=== PATIENT | female | born 1990 | race Caucasian/White ===

== ENCOUNTER 2023-12-13 14:09 | Inpatient (IN) | payer MEDICAID ==
[~2023-12-13] VITALS: Ht 154.9 cm; Wt 64.6 kg
[2023-12-13 14:17] VITALS: O2SAT 98
[2023-12-13] MEDS: SODIUM CHLORIDE 0.9% 1,000 ML IV ONE ×2 (14:45→16:07)
[2023-12-13] MEDS: PIPERACILLIN/TAZO 3.375G/50ML 50 ML IV STA (16:07)
[2023-12-13 16:49] LABS: BASOPHILS % 0.4 % (0.0-2.0); EOSINOPHILS % 0.6 % (0.0-5.0); HEMATOCRIT. 22.9 % (36.0-48.0); HEMOGLOBIN. 7.7 g/dL (12.0-16.0); LYMPHOCYTES % 8.6 % (20.0-50.0); MEAN CORPUSCULAR HEMOGLOBIN 28.4 pg (28.0-32.0); MEAN CORPUSCULAR HGB CONC 33.8 g/dL (31.0-37.0); MEAN CORPUSCULAR VOLUME 83.9 fL (81.0-99.0); MEAN PLATELET VOLUME 7.3 fl (7.4-10.4); MONOCYTES % 3.3 % (2.0-8.0); NEUTROPHILS % 87.1 % (40.0-76.0); PLATELET 207 x1000/uL (130-400); RED BLOOD CELL COUNT 2.73 mill/uL (4.2-5.4); RED CELL DISTRIBUTION WIDTH 16.2 % (11.6-14.6); WHITE BLOOD COUNT 17.1 x1000/uL (4.5-11.0)
[2023-12-13 16:57] LABS: CHLORIDE 99 mEq/L (98-107); POTASSIUM 4.4 mEq/L (3.5-5.1); SODIUM 128 mEq/L (136-145)
[2023-12-13 16:58] LABS: CALCIUM 8.4 mg/dL (8.7-10.4); CARBON DIOXIDE 20 mEq/L (21-32)
[2023-12-13] MEDS: HYDRALAZINE 20MG/ML VIAL IV ONE (16:59)
[2023-12-13] MEDS: MORPHINE SULFATE 4 MG/ML INJ (FOR IV/IM USE) IV ONE (16:59)
[2023-12-13 17:03] LABS: CREATININE 3.7 mg/dL (0.6-1.0); GLUCOSE 125 mg/dL (70-105); UREA NITROGEN BLOOD 29 mg/dL (9-23)
[2023-12-13 17:09] LABS: D-DIMER 4.32 mg/L FEU (<0.50); INR 1.1
[2023-12-13 17:16] LABS: HCG SCREEN NEGATIVE
[2023-12-13 17:18] LABS: TROPONIN I HIGH SENSITIVITY 171 ng/L (3.0-34)
[2023-12-13 19:46] LABS: BG BASE EXCESS -6.1 mmol/L (-2.0-2.0); BG CARBOXYHEMOGLOBIN 0.3 % (0.5-1.5); BG DEOXYHEMOGLOBIN 5.5 % (0.0-5.0); BG FRACTION INSPIRED OXYGEN 44; BG METHEMOGLOBIN 0.4 % (0.0-1.5); BG OXYGEN SATURATION 94.5 % (92.0-98.5); BG OXYHEMOGLOBIN 93.8 % (94.0-97.0); BG PCO2 29.4 mmHg (35.0-45.0); BG PH 7.405 (7.350-7.450); BG PO2 78.4 mmHg (75.0-100.0); BG SAMPLE SITE RIGHT RADIAL; BG VENT MODE NASAL CANNULA
[2023-12-13] MEDS ORDERED: DOCUSATE SODIUM 100MG CAPSULE PO PRN (20:30)
[2023-12-13] MEDS ORDERED: IPRATROPIUM/ALBUTEROL 0.5-3(2.5)MG/3ML NEB HHN PRN (20:30)
[2023-12-13] MEDS ORDERED: ONDANSETRON HCL 4MG/2ML INJ IV PRN (20:30)
[2023-12-13] MEDS ORDERED: IOHEXOL-350 100 ML BOTTLE ONE (20:42)
[2023-12-13] MEDS: VANCOMYCIN 1250MG in DEXTROSE 5% WATER 250ML IV NR (21:00)
[2023-12-13] MEDS: CLONIDINE 0.1MG TABLET PO NR (21:15)
[2023-12-13 22:30] VITALS: BP 146/111; PULSE 110; RESP 17; TEMP 98.3
[2023-12-13] MEDS: CLONIDINE 0.1MG TABLET PO PRN (22:58)
[2023-12-14] VITALS (18 sets, daily range): BP systolic 121–146; BP diastolic 94–111; PULSE 90–110; RESP 17–25; TEMP 97.5–98.5
[2023-12-14 00:20] LABS: IRON 23 ug/dL (50-170)
[2023-12-14 00:23] LABS: TOTAL IRON BINDING CAPACITY 372 ug/dl (250-425)
[2023-12-14 01:03] LABS: FOLIC ACID (FOLATE) SERUM > 20.00 ng/mL (>5.38); VITAMIN B12 SERUM 1075 pg/mL (211-911)
[2023-12-14] MEDS ORDERED: PIPERACILLIN/TAZO 3.375G/50ML 50 ML IV SCH (04:00)
[2023-12-14 04:04] LABS: POTASSIUM 4.9 mEq/L (3.5-5.1)
[2023-12-14 04:10] LABS: CREATININE 3.6 mg/dL (0.6-1.0)
[2023-12-14 04:11] LABS: CREATINE KINASE MB FRACTION 3.3 ng/mL (0.5-3.6)
[2023-12-14 04:15] LABS: T4 FREE 1.35 ng/dL (0.89-1.76); THYROID STIMULATING HORMONE 5.29 uIU/mL (0.55-4.78)
[2023-12-14] MEDS: PIPERACILLIN/TAZO 3.375G/50ML 50 ML IV SCH (04:29)
[2023-12-14] MEDS: SODIUM CHLORIDE 0.9% 1,000 ML IV SCH (04:30)
[2023-12-14] MEDS: ENOXAPARIN 60MG/0.6ML SYR SUBCUT SCH (07:59)
[2023-12-14 08:08] LABS: BASOPHILS % 0.4 % (0.0-2.0); EOSINOPHILS % 0.2 % (0.0-5.0); LYMPHOCYTES % 14.6 % (20.0-50.0); MEAN CORPUSCULAR HEMOGLOBIN 27.9 pg (28.0-32.0); MEAN CORPUSCULAR HGB CONC 33.5 g/dL (31.0-37.0); MEAN CORPUSCULAR VOLUME 83.3 fL (81.0-99.0); MEAN PLATELET VOLUME 7.6 fl (7.4-10.4); MONOCYTES % 3.8 % (2.0-8.0); PLATELET 194 x1000/uL (130-400); RED CELL DISTRIBUTION WIDTH 16.4 % (11.6-14.6); WHITE BLOOD COUNT 10.6 x1000/uL (4.5-11.0)
[2023-12-14 08:21] LABS: HEMATOCRIT. 20.9 % (36.0-48.0)
[2023-12-14] MEDS ORDERED: NITROGLYCERIN 0.4MG TABLET SL SL PRN (09:30)
[2023-12-14] MEDS: AMLODIPINE 5MG TABLET PO SCH (09:43)
[2023-12-14 09:45] LABS: CLARITY URINE CLOUDY (CLEAR); GLUCOSE URINE NEGATIVE (NEGATIVE); KETONES URINE NEGATIVE (NEGATIVE); LEUKOCYTE ESTERASE URINE NEGATIVE (NEGATIVE); NITRITE URINE NEGATIVE (NEGATIVE); OCCULT BLOOD URINE 2+ (NEGATIVE); PH URINE 5.5 (4.5-8.0); PROTEIN URINE 4+ (NEGATIVE); SPECIFIC GRAVITY URINE 1.038 (1.005-1.030); UROBILINOGEN URINE 0.2 E.U./dL (0.2-1.0)
[2023-12-14 10:01] LABS: COLOR URINE GREEN (YELLOW)
[2023-12-14 10:03] LABS: BACTERIA URINE 2+; SQUAMOUS EPITHELIAL CELL URINE FEW /lpf (RARE/1+); WBC URINE 0-2 /hpf (0-2); YEAST URINE NONE SEEN
[2023-12-14 11:37] LABS: *AMPHETAMINES SCREEN URINE NEGATIVE (NEGATIVE)
[2023-12-14 11:38] LABS: *BARBITURATES SCREEN URINE NEGATIVE (NEGATIVE); *BENZODIAZEPINES SCREEN URINE NEGATIVE (NEGATIVE); *COCAINE SCREEN URINE NEGATIVE (NEGATIVE); CANNABINOID URINE SCREEN NEGATIVE (NEGATIVE); ECSTASY MDMA SCREEN URINE NEGATIVE (NEGATIVE); METHADONE URINE SCREEN NEGATIVE (NEGATIVE); OPIATES URINE SCREEN PRESUMPTIVE POSITIVE (NEGATIVE); PHENCYCLIDINE URINE SCREEN NEGATIVE (NEGATIVE)
[2023-12-14 18:56] LABS: TROPONIN I HIGH SENSITIVITY 235 ng/L (3.0-34)
[2023-12-15] VITALS (12 sets, daily range): BP systolic 117–149; BP diastolic 91–106; PULSE 86–104; RESP 18–28; TEMP 98.1–99.1
[2023-12-15 04:51] LABS: HEMATOCRIT 23.2 % (36.0-48.0); HEMOGLOBIN 8.1 g/dL (12.0-16.0)
[2023-12-15] MEDS: GUAIFENESIN 200MG/10ML SUGAR FREE UDC PO PRN (05:11)
[2023-12-15 05:21] LABS: TROPONIN I HIGH SENSITIVITY 165 ng/L (3.0-34)
[2023-12-15 06:40] LABS: CHLORIDE 105 mEq/L (98-107); POTASSIUM 4.2 mEq/L (3.5-5.1); SODIUM 134 mEq/L (136-145)
[2023-12-15 06:41] LABS: CARBON DIOXIDE 20 mEq/L (21-32)
[2023-12-15 06:46] LABS: BASOPHILS % 0.6 % (0.0-2.0); CREATININE 4.1 mg/dL (0.6-1.0); EOSINOPHILS % 2.7 % (0.0-5.0); GLUCOSE 96 mg/dL (70-105); HEMATOCRIT. 24.1 % (36.0-48.0); LYMPHOCYTES % 16.6 % (20.0-50.0); MEAN CORPUSCULAR HEMOGLOBIN 27.9 pg (28.0-32.0); MEAN CORPUSCULAR HGB CONC 33.2 g/dL (31.0-37.0); MEAN PLATELET VOLUME 7.2 fl (7.4-10.4); MONOCYTES % 5.1 % (2.0-8.0); PLATELET 185 x1000/uL (130-400); RED BLOOD CELL COUNT 2.86 mill/uL (4.2-5.4); RED CELL DISTRIBUTION WIDTH 16.6 % (11.6-14.6)
[2023-12-15 06:47] LABS: UREA NITROGEN BLOOD 34 mg/dL (9-23)
[2023-12-15 06:48] LABS: ALANINE AMINOTRANSFERASE 12 IU/L (10-49); ALBUMIN 2.8 g/dL (3.2-4.8); ASPARTATE AMINOTRANSFERASE 18 IU/L (<34); LACTATE DEHYDROGENASE 202 IU/L (120-246)
[2023-12-15 06:49] LABS: BILIRUBIN TOTAL 0.3 mg/dL (0.1-1.0); PROTEIN TOTAL 5.5 g/dL (6.0-8.3)
[2023-12-15 07:11] LABS: BILIRUBIN DIRECT < 0.1 mg/dL (<=3.0)
[2023-12-15 12:14] LABS: HEMOGLOBIN 7.9 g/dL (12.0-16.0)
[2023-12-15 13:12] LABS: TROPONIN I HIGH SENSITIVITY 148 ng/L (3.0-34)
[2023-12-15] MEDS: MULTIVITAMINS,THER W-MINERALS TABLET PO SCH (14:46)
[2023-12-15] MEDS: BENZONATATE 200MG CAPSULE PO NR (14:46)
[2023-12-15] MEDS: EPOETIN ALFA 4000UNITS/ML VIAL SUBCUT SCH (21:09)
[2023-12-15] MEDS: ACETAMINOPHEN 325MG TABLET PO PRN (22:37)
[2023-12-16] VITALS (11 sets, daily range): BP systolic 130–150; BP diastolic 94–111; PULSE 85–107; RESP 18–22; TEMP 97.5–98.6
[2023-12-16 06:07] LABS: HEMOGLOBIN 8.1 g/dL (12.0-16.0); MEAN CORPUSCULAR HEMOGLOBIN 27.8 pg (28.0-32.0); MEAN CORPUSCULAR HGB CONC 33.7 g/dL (31.0-37.0); MEAN CORPUSCULAR VOLUME 82.3 fL (81.0-99.0); PLATELET 148 x1000/uL (130-400); RED BLOOD CELL COUNT 2.91 mill/uL (4.2-5.4); RED CELL DISTRIBUTION WIDTH 16.3 % (11.6-14.6); WHITE BLOOD COUNT 7.6 x1000/uL (4.5-11.0)
[2023-12-16 06:10] LABS: CARBON DIOXIDE 20 mEq/L (21-32); CHLORIDE 111 mEq/L (98-107); POTASSIUM 3.9 mEq/L (3.5-5.1); SODIUM 139 mEq/L (136-145)
[2023-12-16 06:12] LABS: CALCIUM 7.8 mg/dL (8.7-10.4)
[2023-12-16 06:16] LABS: CREATININE 4.3 mg/dL (0.6-1.0); GLUCOSE 93 mg/dL (70-105)
[2023-12-16 06:17] LABS: UREA NITROGEN BLOOD 37 mg/dL (9-23)
[2023-12-16 06:19] LABS: PHOSPHORUS 4.9 mg/dL (2.5-4.9)
[2023-12-16] MEDS: BENZONATATE 100MG CAPSULE PO PRN (10:01)
== END 2023-12-16 19:26 | disposition short-term general hospital (02) | DRG 720 ==
LOC: ER 14:38 → EDBD 14:38 → EDBEDREQ 17:53 → 5EST 18:39 → EDBEDREQ 19:13 → EDBEDREQTM 19:13
PROVIDERS: ADMIT Hospitalist; ATTEND Hospitalist
PROC: 30233N1 Transfusion of Nonautologous Red Blood Cells into Peripheral Vein, Percutaneous Approach (ICD-10-PCS; principal; 2023-12-14)
DX: A41.9 Sepsis, unspecified organism (principal); J96.01 Acute respiratory failure with hypoxia; N17.0 Acute kidney failure with tubular necrosis; J18.9 Pneumonia, unspecified organism; J90 Pleural effusion, not elsewhere classified; J81.1 Chronic pulmonary edema; E87.1 Hypo-osmolality and hyponatremia; E88.09 Other disorders of plasma-protein metabolism, not elsewhere classified; M32.14 Glomerular disease in systemic lupus erythematosus; Z20.822 Contact with and (suspected) exposure to COVID-19; D64.9 Anemia, unspecified; N18.9 Chronic kidney disease, unspecified; I12.9 Hypertensive chronic kidney disease with stage 1 through stage 4 chronic kidney disease, or unspecified chronic kidney disease; R73.9 Hyperglycemia, unspecified; E78.1 Pure hyperglyceridemia; Z86.718 Personal history of other venous thrombosis and embolism; Z86.711 Personal history of pulmonary embolism; Z79.899 Other long term (current) drug therapy; Z79.01 Long term (current) use of anticoagulants
CPT/HCPCS: 36415; 36600; 71045; 71275; 76770; 80048; 80061; 80076; 80202; 80305; 81003; 82375; 82550; 82553; 82570; 82607; 82728; 82746; 82805; 83036; 83540; 83550; 83605; 83615; 83735; 83880; 83930; 83935; 84100; 84145; 84156; 84300; 84439; 84443; 84484; 84703; 85014; 85018; 85025; 85027; 85044; 85379; 86038; 86060; 86256; 86850; 86900; 86920; 87426; 87804; 93005; 93306; 93970; 99291; C1893; J0360; J0885; J1650; J2270; J2543; J3370; J7030; J7060; P9016; Q9967